=== PATIENT | female | born 1970 | race African-American/Black ===

== ENCOUNTER 2016-10-15 15:46 | Emergency (ER) | payer OTHER ==
[~2016-10-15] VITALS: Ht 170.2 cm; Wt 103.0 kg
[~2016-10-15 15:46] MED LIST: FLEXERIL10 MG PO; NOHOMEMEDS
[2016-10-15] MEDS ORDERED: FLEXERIL10 MG PO (18:31)
[2016-10-15] MEDS ORDERED: PREDNISONE20 MG PO (18:31)
[2016-10-15 19:00] VITALS: BP 158/80
== END 2016-10-15 19:09 | disposition home or self-care (01) ==
LOC: EME 15:46
DX: M62.838 Other muscle spasm (principal); R51 Headache; V43.52XA Car driver injured in collision with other type car in traffic accident, initial encounter; Y92.488 Other paved roadways as the place of occurrence of the external cause
CPT/HCPCS: 99281; 99284; J7512